=== PATIENT | female | born 1950 ===

== ENCOUNTER 2023-07-11 10:29 | Outpatient (CLI) | payer OTHER ==
[~2023-07-11 10:29] MED LIST: COZAAR100 MG PO; METFORMIN HCL500 M2 PO; SIMVASTATIN20 MG PO
== END 2023-07-11 10:41 | disposition home or self-care (01) ==
LOC: RAD 10:29
PROVIDERS: ATTEND Orthopaedic Surgery
DX: M25.561 Pain in right knee (principal); M25.562 Pain in left knee